=== PATIENT | female | born 1970 | race African-American/Black ===

== ENCOUNTER 2016-11-15 07:42 | Inpatient (IN) | payer OTHER ==
[~2016-11-15] VITALS: Ht 154.9 cm; Wt 52.4 kg
[~2016-11-15 07:42] MED LIST: FERS325 PO; PANT40TA25 PO
[2016-11-15 08:11] LABS: GLUCOSE,POINT OF CARE 104 MG/DL (70-110)
[2016-11-15 08:32] LABS: HEMATOCRIT 31.8 % (36-46); HEMOGLOBIN 10.2 g/dL (12.0-16.0); MEAN CORPUSCULAR HEMOGLOBIN 28.1 pg (26.0-34.0); MEAN CORPUSCULAR HGB CONC 32.1 G/dL (31.0-37.0); MEAN CORPUSCULAR VOLUME 87 fL (80-100); PLATELET COUNT (AUTO) 138 K/uL (150-450); RED BLOOD CELL COUNT(AUTO) 3.63 MIL/uL (4.00-5.20); RED CELL DISTRIBUTION WIDTH 25.7 % (11.5-14.5); WHITE BLOOD COUNT (AUTO) 10.4 K/uL (4.5-11.0)
[2016-11-15] MEDS ORDERED: SODIUM CHLORIDE 0.9% 1,000 ML IV ONE ×2 (08:38→08:45)
[2016-11-15 08:43] LABS: INR 1.5 (0.9-1.1); PROTHROMBIN TIME 15.7 SEC (9.4-11.6)
[2016-11-15 08:57] LABS: AMMONIA 62 umol/L (11-32); TROPONIN I < 0.02 ng/mL (0.00-0.05)
[2016-11-15 09:01] LABS: BAND NEUTROPHILS % (MANUAL) 5 % (1-5); LYMPHOCYTES % (MANUAL) 23 % (22-44); RBC MORPHOLOGY COMMENT DIMORPHIC RBC; TOTAL CELLS COUNTED 100
[2016-11-15 09:09] LABS: ANION GAP 11 mmol/L (8-16); CALCIUM, TOTAL 8.9 mg/dL (8.8-10.5); CARBON DIOXIDE 25 mmol/L (22-29); CHLORIDE 98 mmol/L (98-107); CREATININE 1.01 mg/dL (0.60-1.30); GLOMERULAR FILTR. RATE CALC > 60 mL/min (>60); POTASSIUM 4.4 mmol/L (3.5-5.1); SODIUM SERUM 134 mmol/L (136-145); UREA NITROGEN, BLOOD 22 mg/dL (7-18)
[2016-11-15 09:15] LABS: ALANINE AMINOTRANSFERASE 40 U/L (12-78); ALBUMIN 2.3 g/dL (3.4-5.0); ASPARTATE AMINOTRANSFERASE 100 U/L (15-37); BILIRUBIN,TOTAL 3.5 mg/dL (0.1-1.0); CREATINE KINASE, TOTAL 52 U/L (26-192); TOTAL PROTEIN, SERUM 10.9 g/dL (6.4-8.2)
[2016-11-15 09:50] LABS: APPEARANCE,URINE TURBID (CLEAR); GLUCOSE, URINE (UA) NEGATIVE (NEGATIVE); KETONES,URINE NEGATIVE (NEGATIVE); LEUKOCYTE ESTERASE ,URINE LARGE (NEGATIVE); OCCULT BLOOD,URINE LARGE (NEGATIVE); PROTEIN,URINE TRACE (NEGATIVE)
[2016-11-15 09:52] LABS: ADD UA MICROSCOPIC YES
[2016-11-15 09:57] LABS: SQUAMOUS EPITHELIAL CELL,UR Moderate /LPF (None Seen); URINALYSIS COMMENT Many Trich. seen.
[2016-11-15] MEDS ORDERED: MetroNIDAZOLE 500 MG/NACL 100 ML IV ONE (10:15)
[2016-11-15] MEDS ORDERED: LEVOFLOXACIN 500 MG/D5% WATER 100 ML IV ONE (10:15)
[2016-11-15] MEDS ORDERED: ACETAMINOPHEN 325 MG TABLET PO PRN (11:00)
[2016-11-15] MEDS ORDERED: LACTULOSE 20 GM/30 ML SOLUTION UDCUP PO ONE (11:15)
[2016-11-15] MEDS: LACTULOSE 20 GM/30 ML SOLUTION UDCUP PO SCH ×2 (11:35→18:03)
[2016-11-15 17:30] VITALS: BP 118/50
[2016-11-15] MEDS: HEPARIN SODIUM,PORCINE 5,000 UNITS/ML VIAL SQ SCH (18:03)
[2016-11-15] MEDS: OxyCODONE HCL/ACETAMINOPHEN 5-325 MG TABLET PO PRN (18:03)
[2016-11-15] MEDS ORDERED: PNEUMOCOCCAL VACCINE POLYVALENT 0.5 ML VIAL [PPSV23] IM ONE (18:15)
[2016-11-15 20:37] VITALS: BP 126/77
[2016-11-15 23:34] VITALS: BP 119/72
[2016-11-16] MEDS: HEPARIN SODIUM,PORCINE 5,000 UNITS/ML VIAL SQ SCH ×3 (00:42→17:55)
[2016-11-16] MEDS: LACTULOSE 20 GM/30 ML SOLUTION UDCUP PO SCH ×4 (00:42→17:55)
[2016-11-16 03:25] VITALS: BP 115/76
[2016-11-16] MEDS: OxyCODONE HCL/ACETAMINOPHEN 5-325 MG TABLET PO PRN (04:10)
[2016-11-16 07:10] VITALS: BP 99/66
[2016-11-16] MEDS ORDERED: PANTOPRAZOLE SODIUM 40 MG DR TABLET PO SCH (09:00)
[2016-11-16] MEDS ORDERED: SODIUM CHLORIDE 0.9% 500 ML IV ONE (09:03)
[2016-11-16] MEDS ORDERED: LACT30L PO (09:11)
[2016-11-16] MEDS ORDERED: LEVOFLOXACIN 500 MG/D5% WATER 100 ML IV SCH (10:00)
[2016-11-16 11:00] VITALS: BP 108/71
[2016-11-16 16:31] VITALS: BP 110/72
== END 2016-11-16 20:02 | disposition home or self-care (01) | DRG 280 ==
LOC: EMS 07:43 → 6N 13:55
PROVIDERS: ADMIT Hospitalist; ATTEND Hospitalist
DX: K70.30 Alcoholic cirrhosis of liver without ascites (principal); G93.41 Metabolic encephalopathy; E43 Unspecified severe protein-calorie malnutrition; K72.90 Hepatic failure, unspecified without coma; D68.9 Coagulation defect, unspecified; D69.6 Thrombocytopenia, unspecified; E88.09 Other disorders of plasma-protein metabolism, not elsewhere classified; N39.0 Urinary tract infection, site not specified; I10 Essential (primary) hypertension; E78.5 Hyperlipidemia, unspecified; A59.9 Trichomoniasis, unspecified; F41.9 Anxiety disorder, unspecified; D64.9 Anemia, unspecified; Z68.21 Body mass index [BMI] 21.0-21.9, adult
CPT/HCPCS: 51702; 76705; 82962; 87040; 87086; 93005; 96361; 96365; 96366; 99285; G0480; J1644; J1956; J3490; J7030; J7040